=== PATIENT | male | born 1970 | race Caucasian/White ===

== ENCOUNTER 2024-04-05 13:55 | Emergency (ER) | payer OTHER ==
[~2024-04-05] VITALS: Ht 177.8 cm; Wt 100.0 kg
[~2024-04-05 13:55] MED LIST: CRUTCH1 EACH; NAPROSYN500 MG PO; NORCO 5-325 TA1 EACH PO; ONDANSETRON ODT4 MG PO; TOPROL XL50 MG PO
[2024-04-05 14:14] LABS: HEMATOCRIT 44.7 % (35.0-50.0); HEMOGLOBIN 15.5 g/dL (12.0-18.0); MCHC 34.7 g/dl (30-36); MCV 86.4 fl (81-99); PLATELET COUNT 307 K/uL (140-440); RBC 5.17 M/ul (4.3-5.7); RDW 13.5 (10.5-15.0)
[2024-04-05] MEDS ORDERED: NITROGLYCERIN 0.4 MG SUBL SL ONE (14:15)
[2024-04-05] MEDS ORDERED: HEPARIN SOD,PORK IN 0.45% NACL 500 ML IV SCH (14:15)
[2024-04-05] MEDS ORDERED: ondansetron HCL 4 MG/2 ML VIAL IV ONE (14:15)
[2024-04-05] MEDS ORDERED: NITROGLYCERIN 0.4 MG SUBL SL PRN (14:15)
[2024-04-05] MEDS ORDERED: MORPHINE SULFATE 4 MG/ML VIAL IV ONE (14:15)
[2024-04-05] MEDS ORDERED: ASPIRIN 81 MG CHEW PO ONE (14:15)
[2024-04-05] MEDS ORDERED: HEParin SOD (PORCINE) 5,000 UNIT/ML VIAL IV ONE (14:15)
[2024-04-05 14:28] LABS: LYMPHOCYTES, MANUAL DIFF 58; MONOCYTES, MANUAL DIFF 5; NEUTROPHILS, MANUAL DIFF 37
[2024-04-05 14:30] VITALS: BP 120/79
[2024-04-05] MEDS ORDERED: HEParin SOD (PORCINE) 5,000 UNIT/ML SYR IV ONE (14:30)
[2024-04-05] MEDS ORDERED: CLOPIDOGREL BISULFATE 75 MG TAB PO ONE (14:30)
[2024-04-05 14:33] LABS: ALBUMIN 3.8 g/dL (3.4-5.0); BILIRUBIN, TOTAL 1.6 ng/dL (0.2-1.0); BUN/CREATININE RATIO 10.62 (6.0-28.6); CREATININE, SERUM 1.6 mg/dL (0.70-1.30); PROTEIN, TOTAL 7.6 g/dL (6.4-8.2)
[2024-04-05 14:34] LABS: INR 0.99 (0.80-1.30); PROTIME 12.7 Sec (11.2-14.2)
--- NOTE | 2024-04-05 20:53 | EKG ---
[facility] [address] [facility] [place] [id number] Signed Normal sinus rhythm ST elevation, consider anterior injury or acute infarct ACUTE [place] / STEMI Abnormal ECG No previous ECGs available Confirmed by Ryan Cabrera MD ([id number]) on 04/05/2024 8:52:47 PM Electronically Signed By: RYAN CABRERA DO 04/05/242052 PATIENT NAME: TERRIE SAHU Electrocardiogram DATE OF : 70 PHYSICIAN: RYAN CABRERA DO REPORT #: [id number] REPORT IS CONFIDENTIAL AND NOT TO BE RELEASED WITHOUT AUTHORIZATION
== END 2024-04-05 14:30 | disposition short-term general hospital (02) ==
LOC: ED 13:55
PROVIDERS: Emergency Medicine
DX: I21.09 ST elevation (STEMI) myocardial infarction involving other coronary artery of anterior wall (principal); E78.5 Hyperlipidemia, unspecified; I10 Essential (primary) hypertension; Z79.899 Other long term (current) drug therapy
CPT/HCPCS: 36415; 71045; 80053; 83735; 84484; 85025; 85610; 85730; 93005; 93010; 96374; 96375; 99285-25; A9270; J1644; J2270; J2405